=== PATIENT | female | born 1990 | race African-American/Black ===

== ENCOUNTER 2018-08-18 22:44 | Emergency (ER) | payer OTHER ==
--- NOTE | 2018-08-18 22:55 | ED Physician Documentation ---
PD HPI NVD - Stated complaint Stated Complaint: NAUSEA/DIARRHEA - Chief complaint Chief Complaint: Abd Pain - History obtained from History obtained from: Patient - History of Present Illness Timing - onset: Today Timing - duration: Hours Timing - details: Gradual onset, Waxing and waning Pain level now: 3 Associated symptoms: Abdominal pain. No: Fever Contributing factors: Diabetes Improved by: Other (nothing) Worsened by: Other (no exacerbating factors) Similar symptoms before: Has not had sx before Recently seen: Not recently seen - Additonal information Additional information: c/o abdominal cramping pain diffusely, diarrhea, and nausea without vomiting. symptoms started this morning and gradually progressed. 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 She says her blood sugars have been running [id number] 200s (most recently mid 100s, as she made some dietary changes due to the previous higher readings Review of Systems Constitutional: denies: Fever, Chills, Sweats Cardiac: reports: Reviewed and negative Respiratory: reports: Reviewed and negative GI: reports: Abdominal Pain, Nausea, Diarrhea. denies: Abdominal Swelling, Vomiting, Bloody / black stool : reports: Frequency. 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 - Present Medications Home Medications: Ambulatory Orders Medication Instructions Recorded Confirmed Diphenoxylate/Atropine [Lomotil] 1 each PO QID PRN #14 tablet 08/19/18 Gabapentin 300 mg PO DAILY 08/19/18 08/19/18 Insulin Aspart [NovoLOG] SUBQ DAILY 08/19/18 Insulin Glargine [Lantus Solostar] 22 units SUBQ DAILY 08/19/18 08/19/18 Ondansetron Odt [Zofran] 4 mg TL Q6H PRN #10 tablet 08/19/18 - Allergies Allergies/Adverse Reactions: Allergies Allergy/AdvReac Type Severity Reaction Status Date / Time No Known Drug Allergies Allergy Verified 08/18/18 22:53 PD ED PE NORMAL - Vitals Vital signs reviewed: Yes - General General: Alert and oriented X 3, No acute distress, Well developed/nourished - HEENT HEENT: Moist mucous membranes - Cardiac Cardiac: No murmur - Respiratory Respiratory: No respiratory distress, Clear bilaterally - Abdomen Abdomen: Normal bowel sounds, Soft, Non tender, Non distended - Back Back: No CVA TTP PD ED PE EXPANDED - Cardiac Cardiac: Tachy, Regular Rhythm Results - Vitals Vitals: Vital Signs - 24 hr 08/18/18 08/18/18 08/19/18 22:45 22:50 00:19 Temperature 36.4 C L Heart Rate 104 H 104 H 79 Respiratory 18 18 14 Rate Blood Pressure 132/96 H 132/96 H 125/78 O2 Saturation 100 100 100 08/19/18 00:43 Temperature 36.2 C L Heart Rate 80 Respiratory 16 Rate Blood Pressure 115/86 H O2 Saturation 100 Oxygen O2 Source Room air - Labs Labs: Laboratory Tests 08/18/18 08/18/18 08/18/18 22:49 23:25 23:25 WBC 7.2 RBC 4.90 Hgb 10.1 L Hct 37.0 MCV 75.5 L MCH 20.6 L MCHC 27.3 L RDW 15.6 H Plt Count 295 MPV 9.7 Neut # (Auto) 3.7 Lymph # (Auto) 2.8 [place] # (Auto) 0.6 Eos # (Auto) 0.0 Baso # (Auto) 0.0 Absolute Nucleated RBC 0.00 Nucleated RBC % 0.0 Manual Slide Review Indicated Platelet Estimate NORMAL (130-450,000) RBC Morph Micro Appear 1+ MICROCYTOSIS Sodium 139 Potassium 3.8 Chloride 102 Carbon Dioxide 24 Anion Gap 13.0 BUN 10 Creatinine 0.6 Estimated GFR (MDRD) 148 Glucose 253 H POC Whole Bld Glucose 232 H Calcium 9.5 Total Bilirubin 0.4 AST 19 ALT 10 Alkaline Phosphatase 77 Total Protein 7.8 Albumin 4.0 Globulin 3.8 Albumin/Globulin Ratio 1.1 Lipase 33 Urine Color Urine Clarity Urine pH Ur Specific Roy Urine Protein Urine Glucose (UA) Urine Ketones Urine Occult Blood Urine Nitrite Urine Bilirubin Urine Urobilinogen Ur Leukocyte Esterase Ur Microscopic Review Urine Culture Comments 08/18/18 23:54 WBC RBC Hgb Hct MCV MCH MCHC RDW Plt Count MPV Neut # (Auto) Lymph # (Auto) [place] # (Auto) Eos # (Auto) Baso # (Auto) Absolute Nucleated RBC Nucleated RBC % Manual Slide Review Platelet Estimate RBC Morph Micro Appear Sodium Potassium Chloride Carbon Dioxide Anion Gap BUN Creatinine Estimated GFR (MDRD) Glucose POC Whole Bld Glucose Calcium Total Bilirubin AST ALT Alkaline Phosphatase Total Protein Albumin Globulin Albumin/Globulin Ratio Lipase Urine Color YELLOW Urine Clarity CLEAR Urine pH 6.5 Ur Specific Roy 1.015 Urine Protein NEGATIVE Urine Glucose (UA) >=1000 H Urine Ketones 40 H Urine Occult Blood NEGATIVE Urine Nitrite NEGATIVE Urine Bilirubin NEGATIVE Urine Urobilinogen 0.2 (NORMAL) Ur Leukocyte Esterase NEGATIVE Ur Microscopic Review NOT INDICATED Urine Culture Comments NOT INDICATED PD MEDICAL DECISION MAKING - ED course Complexity details: reviewed results, re-evaluated patient, considered differential, d/w patient, d/w family ED course: reassuring blood tests and UA. on reevaluation, patient reports feeling better after IV fluids, zofran, and lomotil, and she is comfortable with discharge home Departure - Departure Disposition: 01 , Self Care Clinical Impression: Nausea Diarrhea Qualifiers: Diarrhea type: unspecified type Qualified Code(s): R19.7 - Diarrhea, unspecified Abdominal pain Qualifiers: Abdominal location: generalized Qualified Code(s): R10.84 - Generalized abdominal pain Condition: Good Health Concerns: abnormal blood sugar, diarrhea, nausea, abdominal pain Plan of Treatment: prescriptions for antinauseant and antidiarrheal medications, return if worse, follow up with primary care physician Care Goals: resolution of symptoms Assessment: see diagnosis Instructions: ED Abdominal Pain Unkn Cause, ED Diet Vomiting Diarrhea, ED Vomiting Diarrhea Nonspecific Ad Follow-Up: Remy Maravilla ARNP [Primary Care Provider] - Prescriptions: Diphenoxylate/Atropine [Lomotil] 1 each PO QID PRN #14 tablet PRN Reason: Diarrhea Ondansetron Odt [Zofran] 4 mg TL Q6H PRN #10 tablet PRN Reason: Nausea / Vomiting Discharge Date/Time: 08/19/18 00:45
[2018-08-18] MEDS ORDERED: SODIUM CHLORIDE 0.9% 1,000 ML IV STA (23:07)
[2018-08-18] MEDS ORDERED: ONDANSETRON 4 MG/2 ML VIAL IVP STA (23:07)
[2018-08-18] MEDS ORDERED: DIPHENOX/ATROPINE 2.5/0.025 MG TABLET PO STA (23:08)
[2018-08-18 23:36] LABS: BASOPHILS % (AUTO) 0.4 %; EOSINOPHILS % (AUTO) 0.6 %; HGB - HEMOGLOBIN 10.1 g/dL (12.0-16.0); LYMPHOCYTES # (AUTO) 2.8 10^3/uL (1.5-3.5); LYMPHOCYTES % (AUTO) 38.8 %; MEAN CORPUSCULAR HEMOGLOBIN 20.6 pg (27.0-31.0); MEAN CORPUSCULAR HGB CONC 27.3 g/dL (32.0-36.0); MEAN CORPUSCULAR VOLUME 75.5 fL (81.0-99.0); MEAN PLATELET VOLUME 9.7 fL (7.9-10.8); MONOCYTES # (AUTO) 0.6 10^3/uL (0.0-1.0); MONOCYTES % (AUTO) 8.1 %; NEUTROPHILS # (AUTO) 3.7 10^3/uL (1.5-6.6); NEUTROPHILS % (AUTO) 51.8 %; PLT - PLATELET COUNT 295 10^3/uL (130-450); RED CELL DISTRIBUTION WIDTH 15.6 % (12.0-15.0); WHITE BLOOD COUNT 7.2 x10^3/uL (4.8-10.8)
[2018-08-18 23:50] LABS: ALBUMIN/GLOBULIN RATIO 1.1 (1.0-2.2); BILIRUBIN,TOTAL 0.4 mg/dL (0.2-1.0); CALCIUM 9.5 mg/dL (8.5-10.3); CREATININE 0.6 mg/dL (0.4-1.0); TOTAL PROTEIN 7.8 g/dL (6.7-8.2)
[2018-08-18 23:57] LABS: BILIRUBIN,URINE NEGATIVE (NEGATIVE); GLUCOSE, URINE (UA) >=1000 mg/dL (NEGATIVE); KETONES,URINE (UA) 40 mg/dL (NEGATIVE); LEUKOCYTE ESTERASE, URINE NEGATIVE (NEGATIVE); NITRITE,URINE NEGATIVE (NEGATIVE); OCCULT BLOOD,URINE NEGATIVE (NEGATIVE); PH,URINE 6.5 PH (5.0-7.5); PROTEIN,URINE NEGATIVE (NEGATIVE); UROBILINOGEN,URINE 0.2 (NORMAL) E.U./dL (NORMAL)
[2018-08-18 23:58] LABS: CLARITY,URINE CLEAR (CLEAR)
[2018-08-19 00:06] LABS: PLATELET ESTIMATE, MANUAL NORMAL (130-450,000) (NORMAL); RBC MORPHOLOGY (MULTIPLE) 1+ MICROCYTOSIS (NORMAL)
[2018-08-19 00:44] VITALS: BP 115/86
== END 2018-08-19 00:45 | disposition home or self-care (01) ==
LOC: ED 22:44
DX: R10.84 Generalized abdominal pain (principal); R19.7 Diarrhea, unspecified; R11.0 Nausea; E10.9 Type 1 diabetes mellitus without complications; Z79.4 Long term (current) use of insulin
CPT/HCPCS: 36415; 80053; 81003; 83690; 85025; 96361; 96374; 99283; 99284; A9270; 81001; 87086

== ENCOUNTER 2018-09-20 15:37 | Emergency (ER) | payer OTHER ==
--- NOTE | 2018-09-20 15:51 | ED Physician Documentation ---
History of Present Illness - Stated complaint Stated Complaint: DIZZY - Chief complaint Chief Complaint: General - History obtained from History obtained from: Patient - History of Present Illness Timing: Today (27-year-old woman Who has had type 1 diabetes for the last 4 years. She was in her usual state of health this morning and about an hour ago started to feel lightheaded and panicky and palpitations. Starting to feel better now. She admits this may have been anxiety. She took her blood sugar twice and it was in the neighborhood of 190.) Review of Systems Ten Systems: 10 systems reviewed and negative Constitutional: denies: Fever, Chills Cardiac: reports: Palpitations. 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 - Present Medications Home Medications: Ambulatory Orders Medication Instructions Recorded Confirmed Diphenoxylate/Atropine [Lomotil] 1 each PO QID PRN #14 tablet 08/19/18 Insulin Aspart [NovoLOG] SUBQ DAILY 08/19/18 Insulin Glargine [Lantus Solostar] 22 units SUBQ DAILY 08/19/18 08/19/18 Ondansetron Odt [Zofran] 4 mg TL Q6H PRN #10 tablet 08/19/18 RX: Gabapentin 300 mg PO DAILY 08/19/18 08/19/18 RX: Gabapentin [Neurontin] 300 mg PO TID #30 capsule 09/20/18 - Allergies Allergies/Adverse Reactions: Allergies Allergy/AdvReac Type Severity Reaction Status Date / Time No Known Drug Allergies Allergy Verified 09/20/18 15:43 - Social History Does the pt smoke?: No Smoking Status: Never smoker Does the pt drink ETOH?: No Does the pt have substance abuse?: No - Immunizations Immunizations are current?: Yes - POLST Patient has POLST: No PD ED PE NORMAL - Vitals Vital signs reviewed: Yes - General General: Alert and oriented X 3, No acute distress - HEENT HEENT: Pharynx benign - Neck Neck: Supple, no meningeal sign, No bony TTP - Cardiac Cardiac: RRR, No murmur - Respiratory Respiratory: No respiratory distress, Clear bilaterally - Abdomen Abdomen: Non tender - Derm Derm: No rash - Extremities Extremities: No edema, No calf tenderness / cord - Neuro Neuro: Alert and oriented X 3, hvac designer 2-12 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, Normal speech Eye Opening: Spontaneous Motor: Obeys Commands Verbal: Oriented GCS Score: 15 Results - Vitals Vitals: Vital Signs - 24 hr 09/20/18 09/20/18 15:41 17:01 Temperature 36.7 C Heart Rate 92 82 Respiratory 18 16 Rate Blood Pressure 133/86 H 116/81 H O2 Saturation 100 100 Oxygen O2 Source Room air - Labs Labs: Laboratory Tests 09/20/18 09/20/18 09/20/18 15:54 15:56 15:56 WBC 5.0 RBC 4.52 Hgb 9.5 L Hct 34.1 L MCV 75.4 L MCH 21.0 L MCHC 27.9 L RDW 15.5 H Plt Count 229 MPV 8.9 Neut # (Auto) 2.4 Lymph # (Auto) 2.1 [place] # (Auto) 0.4 Eos # (Auto) 0.0 Baso # (Auto) 0.0 Absolute Nucleated RBC 0.00 Nucleated RBC % 0.0 Sodium 134 L Potassium 3.1 L Chloride 99 L Carbon Dioxide 22 Anion Gap 13.0 BUN 13 Creatinine 0.6 Estimated GFR (MDRD) 148 Glucose 264 H Calcium 9.6 Total Bilirubin 0.3 AST 21 ALT 13 Alkaline Phosphatase 80 Total Protein 7.7 Albumin 3.8 Globulin 3.9 Albumin/Globulin Ratio 1.0 Lipase 27 Urine Color YELLOW Urine Clarity CLEAR Urine pH 6.0 Ur Specific [place] 1.020 Urine Protein NEGATIVE Urine Glucose (UA) 500 H Urine Ketones TRACE Urine Occult Blood LARGE H Urine Nitrite NEGATIVE Urine Bilirubin NEGATIVE Urine Urobilinogen 1 (NORMAL) Ur Leukocyte Esterase NEGATIVE Urine RBC TNTC H Urine WBC 4-5 Ur Squamous Epith Cells FEW Squamous Urine Bacteria Many H Urine Mucus Few Strands Urine Yeast PRESENT Ur Microscopic Review INDICATED Urine Culture Comments INDICATED Urine 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 She has a history of type 1 diabetes. No evidence of DKA. On further history she was on gabapentin but stopped abruptly recently and I suspect that this may be contributing and she is advised to start up on gabapentin again at a lower dose which should help with her anxiety symptoms. She does have apparent iron deficiency anemia and is taking iron already for this. Urinalysis noted, but has no symptoms really referrable to this and would wait for culture. Departure - Departure Disposition: 01 Home, Self Care Clinical Impression: Anxiety, Diabetes, Iron deficiency anemia Condition: Good Record reviewed to determine appropriate education?: Yes Instructions: ED Stress React Prescriptions: RX: Gabapentin [Neurontin] 300 mg PO TID #30 capsule Comments: Blood pressure Restart her gabapentin at a lower dose. That should help with your anxiety symptoms. Continue your iron for iron deficiency anemia. Return for new or worsening symptoms. Discharge Date/Time: 09/20/18 17:02
[2018-09-20 16:01] LABS: BASOPHILS % (AUTO) 0.6 %; EOSINOPHILS % (AUTO) 0.4 %; HGB - HEMOGLOBIN 9.5 g/dL (12.0-16.0); LYMPHOCYTES # (AUTO) 2.1 10^3/uL (1.5-3.5); LYMPHOCYTES % (AUTO) 42.8 %; MEAN CORPUSCULAR HGB CONC 27.9 g/dL (32.0-36.0); MEAN CORPUSCULAR VOLUME 75.4 fL (81.0-99.0); MEAN PLATELET VOLUME 8.9 fL (7.9-10.8); MONOCYTES # (AUTO) 0.4 10^3/uL (0.0-1.0); MONOCYTES % (AUTO) 7.9 %; NEUTROPHILS # (AUTO) 2.4 10^3/uL (1.5-6.6); NEUTROPHILS % (AUTO) 48.1 %; PLT - PLATELET COUNT 229 10^3/uL (130-450); RED BLOOD COUNT 4.52 10^6/uL (4.20-5.40); RED CELL DISTRIBUTION WIDTH 15.5 % (12.0-15.0)
[2018-09-20 16:14] LABS: BILIRUBIN,URINE NEGATIVE (NEGATIVE); GLUCOSE, URINE (UA) 500 mg/dL (NEGATIVE); KETONES,URINE (UA) TRACE mg/dL (NEGATIVE); LEUKOCYTE ESTERASE, URINE NEGATIVE (NEGATIVE); NITRITE,URINE NEGATIVE (NEGATIVE); OCCULT BLOOD,URINE LARGE (NEGATIVE); PROTEIN,URINE NEGATIVE (NEGATIVE); UROBILINOGEN,URINE 1 (NORMAL) E.U./dL (NORMAL)
[2018-09-20 16:15] LABS: CLARITY,URINE CLEAR (CLEAR)
[2018-09-20 16:26] LABS: ALBUMIN 3.8 g/dL (3.2-5.5); BILIRUBIN,TOTAL 0.3 mg/dL (0.2-1.0); CALCIUM 9.6 mg/dL (8.5-10.3); CREATININE 0.6 mg/dL (0.4-1.0); TOTAL PROTEIN 7.7 g/dL (6.7-8.2)
[2018-09-20 16:35] LABS: BACTERIA,URINE Many /HPF (None Seen); MUCUS,URINE Few Strands; RBC,URINE TNTC /HPF (0-5); SQUAMOUS EPITHELIAL CELL,UR FEW Squamous (<= Few)
[2018-09-20 16:36] LABS: YEAST,URINE PRESENT
[2018-09-20 17:02] VITALS: BP 116/81
== END 2018-09-20 17:02 | disposition home or self-care (01) ==
LOC: ED 15:37
DX: F41.9 Anxiety disorder, unspecified (principal); E10.9 Type 1 diabetes mellitus without complications; Z79.4 Long term (current) use of insulin; D50.9 Iron deficiency anemia, unspecified
CPT/HCPCS: 36415; 80053; 81001; 81003; 81025; 83690; 85025; 87086; 99283

== ENCOUNTER 2018-10-30 21:59 | Emergency (ER) | payer MEDICARE, OTHER ==
--- NOTE | 2018-10-30 22:12 | ED Physician Documentation ---
History of Present Illness - Stated complaint Stated Complaint: BREAST PX/NAUSEA - Chief complaint Chief Complaint: Ext Problem - History obtained from History obtained from: Patient - History of Present Illness Timing: How many weeks ago (1) Improved by: nothing Worsened by: no exacerbating factors - Additonal information Additional information: c/o one week of gradual onset, gradually worsening left chest / left breast pain. Denies h/o similar symptoms Review of Systems Constitutional: denies: Fever, Chills, Sweats Cardiac: reports: Chest pain / pressure. 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 - Present Medications Home Medications: Ambulatory Orders Medication Instructions Recorded Confirmed Gabapentin 300 mg PO DAILY 08/19/18 08/19/18 Insulin Aspart [NovoLOG] SUBQ DAILY 08/19/18 Insulin Glargine [Lantus Solostar] 22 units SUBQ DAILY 08/19/18 08/19/18 Gabapentin [Neurontin] 300 mg PO TID #30 capsule 09/20/18 Ondansetron Odt [Zofran] 4 mg TL Q6H PRN #10 tablet 10/30/18 Oxycodone HCl/Acetaminophen 1 - 2 each PO Q6H PRN #14 tablet 10/30/18 [Percocet 5-325 mg Tablet] - Allergies Allergies/Adverse Reactions: Allergies Allergy/AdvReac Type Severity Reaction Status Date / Time No Known Drug Allergies Allergy Verified 09/20/18 15:43 - Social History Does the pt smoke?: No Smoking Status: Never smoker Does the pt drink ETOH?: No Does the pt have substance abuse?: No - Immunizations Immunizations are current?: Yes - POLST Patient has POLST: No PD ED PE NORMAL - Vitals Vital signs reviewed: Yes - General General: Alert and oriented X 3, No acute distress, Well developed/nourished - Cardiac Cardiac: RRR, No murmur - Respiratory Respiratory: No respiratory distress, Clear bilaterally - Abdomen Abdomen: Soft, Non tender - Female Female : Test Baker present (BISHNU Tee), Other (left breast exam: no erythema, no tenderness, no visible or palpable general or focal swelling, no rash) - Derm Derm: Normal color, Warm and dry, No rash Results - Vitals Vitals: Vital Signs - 24 hr 10/30/18 10/30/18 22:02 23:42 Temperature 36.9 C 37.1 C Heart Rate 97 87 Respiratory 17 18 Rate Blood Pressure 130/85 H 130/75 O2 Saturation 100 100 Oxygen O2 Source Room air - EKG (time done) No standard instances Rate: Rate (enter#) (86) Rhythm: NSR [place]: Normal Intervals: Normal [place] QRS: Normal Ischemia: Normal ST segments - Labs Labs: Laboratory Tests 10/30/18 10/30/18 10/30/18 22:32 22:32 23:10 WBC 7.5 RBC 4.51 Hgb 9.8 L Hct 33.8 L MCV 74.9 L MCH 21.7 L MCHC 29.0 L RDW 16.4 H Plt Count 343 MPV 9.7 Neut # (Auto) 3.5 Lymph # (Auto) 3.4 [place] # (Auto) 0.5 Eos # (Auto) 0.1 Baso # (Auto) 0.0 Absolute Nucleated RBC 0.00 Nucleated RBC % 0.0 Sodium 133 L Potassium 3.4 L Chloride 100 L Carbon Dioxide 23 Anion Gap 10.0 BUN 12 Creatinine 0.6 Estimated GFR (MDRD) 146 Glucose 292 H Calcium 8.9 Ur Specific [place] 1.010 Urine HCG, Qual NEGATIVE PD MEDICAL DECISION MAKING - ED course Complexity details: reviewed results, re-evaluated patient, considered differential, d/w patient Departure - Departure Disposition: 01 Home, Self Care Clinical Impression: Chest pain Qualifiers: Chest pain type: unspecified Qualified Code(s): R07.9 - Chest pain, unspecified Condition: Good Instructions: ED Chest Pain Atypical Unkn Cause Follow-Up: CY Rogers [Provider Group] - Within 3 Days Prescriptions: Ondansetron Odt [Zofran] 4 mg TL Q6H PRN #10 tablet PRN Reason: Nausea / Vomiting Oxycodone HCl/Acetaminophen [Percocet 5-325 mg Tablet] 1 - 2 each PO Q6H PRN #14 tablet PRN Reason: pain Discharge Date/Time: 10/30/18 23:52
[2018-10-30 22:36] LABS: BASOPHILS % (AUTO) 0.4 %; EOSINOPHILS # (AUTO) 0.1 10^3/uL (0.0-0.7); EOSINOPHILS % (AUTO) 0.7 %; HGB - HEMOGLOBIN 9.8 g/dL (12.0-16.0); LYMPHOCYTES # (AUTO) 3.4 10^3/uL (1.5-3.5); LYMPHOCYTES % (AUTO) 45.2 %; MEAN CORPUSCULAR HEMOGLOBIN 21.7 pg (27.0-31.0); MEAN CORPUSCULAR VOLUME 74.9 fL (81.0-99.0); MEAN PLATELET VOLUME 9.7 fL (7.9-10.8); MONOCYTES # (AUTO) 0.5 10^3/uL (0.0-1.0); MONOCYTES % (AUTO) 6.6 %; NEUTROPHILS # (AUTO) 3.5 10^3/uL (1.5-6.6); PLT - PLATELET COUNT 343 10^3/uL (130-450); RED BLOOD COUNT 4.51 10^6/uL (4.20-5.40); RED CELL DISTRIBUTION WIDTH 16.4 % (12.0-15.0); WHITE BLOOD COUNT 7.5 x10^3/uL (4.8-10.8)
[2018-10-30 22:45] LABS: CALCIUM 8.9 mg/dL (8.5-10.3); CREATININE 0.6 mg/dL (0.4-1.0)
[2018-10-30 23:26] LABS: HCG UR QUAL NEGATIVE
[2018-10-30] MEDS ORDERED: oxyCODONE/ACET 5/325 Prepack 4 PO STA (23:33)
[2018-10-30] MEDS ORDERED: ONDANSETRON ODT 4 MG Prepack 2 TL STA (23:34)
[2018-10-30 23:43] VITALS: BP 130/75
== END 2018-10-30 23:52 | disposition home or self-care (01) ==
LOC: ED 21:59
DX: R07.9 Chest pain, unspecified (principal); N64.4 Mastodynia; E10.9 Type 1 diabetes mellitus without complications
CPT/HCPCS: 36415; 80048; 81025; 85025; 93005; 99283

== ENCOUNTER 2019-02-12 10:45 | Emergency (ER) | payer MEDICARE, OTHER ==
[2019-02-12 10:53] VITALS: BP 117/71
[2019-02-12 11:45] LABS: BASOPHILS % (AUTO) 0.3 %; EOSINOPHILS # (AUTO) 0.1 10^3/uL (0.0-0.7); EOSINOPHILS % (AUTO) 1.1 %; HGB - HEMOGLOBIN 12.6 g/dL (12.0-16.0); LYMPHOCYTES # (AUTO) 2.3 10^3/uL (1.5-3.5); LYMPHOCYTES % (AUTO) 36.9 %; MEAN CORPUSCULAR HEMOGLOBIN 27.4 pg (27.0-31.0); MEAN CORPUSCULAR HGB CONC 32.6 g/dL (32.0-36.0); MEAN CORPUSCULAR VOLUME 83.9 fL (81.0-99.0); MEAN PLATELET VOLUME 9.8 fL (7.9-10.8); MONOCYTES # (AUTO) 0.4 10^3/uL (0.0-1.0); MONOCYTES % (AUTO) 6.4 %; NEUTROPHILS # (AUTO) 3.4 10^3/uL (1.5-6.6); PLT - PLATELET COUNT 322 10^3/uL (130-450); RED CELL DISTRIBUTION WIDTH 13.6 % (12.0-15.0); WHITE BLOOD COUNT 6.2 x10^3/uL (4.8-10.8)
[2019-02-12 12:14] LABS: ALBUMIN 3.8 g/dL (3.2-5.5); ALBUMIN/GLOBULIN RATIO 1.1 (1.0-2.2); BILIRUBIN,TOTAL 0.4 mg/dL (0.2-1.0); CALCIUM 9.1 mg/dL (8.5-10.3); CREATININE 0.7 mg/dL (0.4-1.0); TOTAL PROTEIN 7.3 g/dL (6.7-8.2)
[2019-02-12 12:40] LABS: HCG,QUALITATIVE BLOOD POSITIVE
== END 2019-02-12 12:30 | disposition left against medical advice (07) ==
LOC: ED 10:45
DX: Z53.21 Procedure and treatment not carried out due to patient leaving prior to being seen by health care provider (principal)
CPT/HCPCS: 36415; 80053; 83690; 84703; 85025

== ENCOUNTER 2019-03-15 10:41 | Emergency (ER) | payer MEDICARE, OTHER ==
[2019-03-15 10:49] VITALS: BP 121/74
--- NOTE | 2019-03-15 12:45 | ED Physician Documentation ---
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 - Present Medications Home Medications: Ambulatory Orders Medication Instructions Recorded Confirmed Gabapentin 300 mg PO DAILY 08/19/18 08/19/18 Insulin Aspart [NovoLOG] SUBQ DAILY 08/19/18 Insulin Glargine [Lantus Solostar] 22 units SUBQ DAILY 08/19/18 08/19/18 Gabapentin [Neurontin] 300 mg PO TID #30 capsule 09/20/18 Ondansetron Odt [Zofran] 4 mg TL Q6H PRN #10 tablet 10/30/18 Oxycodone HCl/Acetaminophen 1 - 2 each PO Q6H PRN #14 tablet 10/30/18 [Percocet 5-325 mg Tablet] - Allergies Allergies/Adverse Reactions: Allergies Allergy/AdvReac Type Severity Reaction Status Date / Time No Known Drug Allergies Allergy Verified 03/15/19 10:46 - Social History Does the pt smoke?: No Smoking Status: Never smoker Does the pt drink ETOH?: No Does the pt have substance abuse?: No - Immunizations Immunizations are current?: Yes - POLST Patient has POLST: No Results - Vitals Vitals: Vital Signs - 24 hr 03/15/19 10:46 Temperature 36.5 C Heart Rate 100 Respiratory 14 Rate Blood Pressure 121/74 O2 Saturation 100 Oxygen O2 Source Room air
== END 2019-03-15 12:56 | disposition left against medical advice (07) ==
LOC: ED 10:41
DX: Z53.21 Procedure and treatment not carried out due to patient leaving prior to being seen by health care provider (principal)
CPT/HCPCS: 80053; 83690; 85025

== ENCOUNTER 2019-06-03 18:15 | Emergency (ER) | payer MEDICARE, OTHER ==
[2019-06-03 18:27] VITALS: BP 127/76
[2019-06-03] MEDS ORDERED: ALBUTEROL 1 PUFF INH STA (18:44)
--- NOTE | 2019-06-03 18:50 | ED Physician Documentation ---
History of Present Illness - Stated complaint Stated Complaint: SOA- - Chief complaint Chief Complaint: Resp - History obtained from History obtained from: Patient - History of Present Illness Timing: How many weeks ago (1) Pain level max: 0 Pain level now: 0 - Additonal information Additional information: 28-year-old female states that she is approximately 24 weeks . She states that she has been intermittently short of breath for the past week. States that today it worsened and was short of breath for approximately 30 minutes. She states it felt like she had a panic attack at that time which made it worse. No fever. No coughing. Did recently travel to [place]. No significant leg swelling. She states that laying on her left side did not seem to help, but being on all fours on the ground seem to help. No issues with this . Does not have a history of asthma. Nothing makes it worse Review of Systems Ten Systems: 10 systems reviewed and negative Constitutional: denies: Fever, Chills Ears: denies: Ear pain Nose: denies: Rhinorrhea / runny nose, Congestion Throat: denies: Sore throat Cardiac: denies: Chest pain / pressure Respiratory: reports: Dyspnea (Intermittently, lasts for 15 to 20 minutes at a time). 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 - Present Medications Home Medications: Ambulatory Orders Medication Instructions Recorded Confirmed Gabapentin 300 mg PO DAILY 08/19/18 08/19/18 Insulin Aspart [NovoLOG] SUBQ DAILY 08/19/18 Insulin Glargine [Lantus Solostar] 22 units SUBQ DAILY 08/19/18 08/19/18 Gabapentin [Neurontin] 300 mg PO TID #30 capsule 09/20/18 Ondansetron Odt [Zofran] 4 mg TL Q6H PRN #10 tablet 10/30/18 Oxycodone HCl/Acetaminophen 1 - 2 each PO Q6H PRN #14 tablet 10/30/18 [Percocet 5-325 mg Tablet] Albuterol Sulf [Ventolin Hfa 1 - 2 puffs INH Q4HR PRN #1 inhaler 06/03/19 Inhaler] - Allergies Allergies/Adverse Reactions: Allergies Allergy/AdvReac Type Severity Reaction Status Date / Time No Known Drug Allergies Allergy Verified 03/15/19 10:46 - Social History Does the pt smoke?: No Smoking Status: Never smoker Does the pt drink ETOH?: No Does the pt have substance abuse?: No - Immunizations Immunizations are current?: Yes - POLST Patient has POLST: No PD ED PE NORMAL - Vitals Vital signs reviewed: Yes - General General: Alert and oriented X 3, No acute distress, Well developed/nourished - HEENT HEENT: PERRL, Moist mucous membranes - Neck Neck: Supple, no meningeal sign - Cardiac Cardiac: RRR, Strong equal pulses - Respiratory Respiratory: No respiratory distress, Clear bilaterally - Abdomen Abdomen: Soft, Non tender, Non distended, Other (Gravid abdomen.) - Derm Derm: Warm and dry, No rash - Extremities Extremities: No edema, No calf tenderness / cord - Neuro Neuro: Alert and oriented X 3 - Psych Psych: Normal mood, Normal affect Results - Vitals Vitals: Vital Signs - 24 hr 06/03/19 06/03/19 06/03/19 18:24 19:17 19:21 Temperature 36.8 C Heart Rate 122 H 116 H 111 H Respiratory 16 18 18 Rate Blood Pressure 127/76 O2 Saturation 99 98 Oxygen O2 Source Room air PD MEDICAL DECISION MAKING - ED course Complexity details: considered differential, d/w patient ED course: Symptoms resolved with albuterol treatment. She is well-appearing, nontoxic. Afebrile. Will prescribe inhaler for home. No evidence of pulmonary embolus. No evidence of acute coronary syndrome. Lungs are clear to auscultation bilaterally. heart tones are normal. She is having normal movement. No leakage of fluid or vaginal bleeding. Patient counseled regarding signs and symptoms for which I believe and urgent re-evaluation would be necessary. Patient with good understanding of and agreement to plan and is comfortable going home at this time This document was made in part using voice recognition software. While efforts are made to proofread this document, sound alike and grammatical errors may occur. Departure - Departure Disposition: 01 Home, Self Care Clinical Impression: Dyspnea Qualifiers: Dyspnea type: unspecified Qualified Code(s): R06.00 - Dyspnea, unspecified Qualifiers: Weeks of gestation: 24 weeks Qualified Code(s): Z3A.24 - 24 weeks gestation of Condition: Good Instructions: ED Dyspnea Shortness of Breath Follow-Up: LU WEEKS MD [Primary Care Provider] - Prescriptions: Albuterol Sulf [Ventolin Hfa Inhaler] 1 - 2 puffs INH Q4HR PRN #1 inhaler PRN Reason: Shortness Of Air/Wheezing Comments: You can use the inhaler as needed. Return if you worsen. Discharge Date/Time: 06/03/19 19:35
[2019-06-03] MEDS ORDERED: ALBUTEROL NEB 2.5 MG/3 ML INH STA (19:12)
== END 2019-06-03 19:35 | disposition home or self-care (01) ==
LOC: ED 18:15
DX: O99.89 Other specified diseases and conditions complicating pregnancy, childbirth and the puerperium (principal); R06.00 Dyspnea, unspecified; O24.912 Unspecified diabetes mellitus in pregnancy, second trimester; Z3A.24 24 weeks gestation of pregnancy
CPT/HCPCS: 94640; 99284

== ENCOUNTER 2019-06-15 14:59 | Outpatient (CLI) | payer MEDICARE, OTHER ==
--- NOTE | 2019-06-15 16:11 | HISTORY & PHYSICAL EXAMINATION ---
Admit History - Visit Reason Visit Reason: Other (28yo at 27 3/7 weeks by stated LMP who presents with progressive dyspnea over the course of the day. +/- cough, has not checked her temp. No n/v or dysuria. Was seen in ER on 06/02 for same, given albuterol with some improvement 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) Smoking Status: Never smoker - Mother's Labs Mother's Blood Type: positive: Unknown Mother's RH: positive: Unknown (Records unavailable) GBS: positive: Other (Unknown) Rubella Status: positive: Unknown Meds/Allgy - Home Medications Home Medications: Ambulatory Orders Medication Instructions Recorded Confirmed Gabapentin 300 mg PO DAILY 08/19/18 08/19/18 Insulin Aspart [NovoLOG] SUBQ DAILY 08/19/18 Insulin Glargine [Lantus Solostar] 22 units SUBQ DAILY 08/19/18 08/19/18 Gabapentin [Neurontin] 300 mg PO TID #30 capsule 09/20/18 Ondansetron Odt [Zofran] 4 mg TL Q6H PRN #10 tablet 10/30/18 Oxycodone HCl/Acetaminophen 1 - 2 each PO Q6H PRN #14 tablet 10/30/18 [Percocet 5-325 mg Tablet] Albuterol Sulf [Ventolin Hfa 1 - 2 puffs INH Q4HR PRN #1 inhaler 06/03/19 Inhaler] - Allergies Allergies/Adverse Reactions: Allergies Allergy/AdvReac Type Severity Reaction Status Date / Time No Known Drug Allergies Allergy Verified 03/15/19 10:46 Review of Systems - Constitutional Constitutional: reports: Malaise, Weakness - Cardiovascular Cariovascular: reports: Palpitations, Chest pain - Respiratory Respiratory: reports: Cough, Wheezing, SOB at rest - Gastrointestinal Gastrointestinal: reports: Other (Few mild contractions) Physical - Abdominal Exam Contraction Frequency (min/apart): q2-5 Contraction Intensity: positive: Mild Uterine Resting Tone: positive: Soft - Monitoring Strip Review: positive: Category I - Vaginal Exam Membranes: positive: Membranes intact - Speculum Exam Speculum Exam Performed: positive: No (FFN collected) Plan for Labor - Plan For Labor Plan for Labor: 28yo at 27 3/7 weeks with significant respiratory distress and features ie tachycardia, abn pulmonary exam suspicious for COVID infection. Type 1 DM w h/o poor control Contractions; FFN sent Plan transfer to ER for further respiratory care. Labs to assess glucose status Follow for signs of PTL. Exam - Exam General: Alert, Moderate distress Lungs: Other (Bilateral basilar wheezes, otherwise clear) Cardiovascular: Regular rate, Other (Marked tachycardia with harsh systolic murmur 3/6) Abdomen: Soft, No tenderness, Other (Gravid, S=D) Skin: No rashes
--- NOTE | 2019-06-15 16:31 | PROVIDER PROGRESS NOTE ---
Subjective - Prog Note Date Prog Note Date: 06/15/19 - Subjective Subjective: Pt brought to ER with O2. RR 25-30, sat 98-100 RA however, with movement 89-91% Recommend stabilize from respiratory standpoint and transfer to [facility].
[2019-06-15 17:31] VITALS: BP 132/88
== END 2019-06-15 16:08 | disposition home or self-care (01) ==
LOC: WFO 14:59 → FBP 15:02 → WFO 16:08
PROVIDERS: ATTEND Obstetrics & Gynecology
DX: O99.89 Other specified diseases and conditions complicating pregnancy, childbirth and the puerperium (principal); R06.03 Acute respiratory distress; R00.0 Tachycardia, unspecified; R05 Cough; O24.012 Pre-existing type 1 diabetes mellitus, in pregnancy, second trimester; E10.40 Type 1 diabetes mellitus with diabetic neuropathy, unspecified; Z3A.27 27 weeks gestation of pregnancy; Z79.4 Long term (current) use of insulin
CPT/HCPCS: 82731; 99214

== ENCOUNTER 2019-06-15 16:15 | Emergency (ER) | payer MEDICARE, OTHER ==
--- NOTE | 2019-06-15 16:33 | ED Physician Documentation ---
PD HPI CHEST PAIN - Stated complaint Stated Complaint: SOA - Chief complaint Chief Complaint: Resp - History obtained from History obtained from: Patient - History of Present Illness Timing - onset: Today (28-year-old G3, P2 at 26 weeks gestation. She is a type I diabetic. She has been short of breath for a couple of weeks, fairly mild. She improved with albuterol but today became much more short of breath. She is orthopneic. Denies chest pain. Was initially seen in OB because of some abdominal complaints and nonstress testing was notable for every 3 to 5-minute contractions. No fluid loss or bleeding. She denies pedal edema or calf pain. No history of heart or lung disease. She denies any cough. No fevers.) Review of Systems Ten Systems: 10 systems reviewed and negative Constitutional: denies: Fever, Chills Throat: denies: Sore throat Cardiac: denies: Chest pain / pressure, Palpitations, Pedal edema, Calf pain Respiratory: denies: Cough, Hemoptysis, Wheezing PD PAST MEDICAL HISTORY - Past Medical History Cardiovascular: None Respiratory: None Neuro: Headaches, Migraines Endocrine/Autoimmune: Type 1 diabetes GI: None GUEST SERVICES: None : None HEENT: None Psych: None Musculoskeletal: None Derm: None - Past Surgical History Past Surgical History: Yes /GUEST SERVICES: section - Present Medications Home Medications: Ambulatory Orders Medication Instructions Recorded Confirmed Gabapentin 300 mg PO DAILY 08/19/18 08/19/18 Insulin Aspart [NovoLOG] SUBQ DAILY 08/19/18 Insulin Glargine [Lantus Solostar] 22 units SUBQ DAILY 08/19/18 08/19/18 Gabapentin [Neurontin] 300 mg PO TID #30 capsule 09/20/18 Ondansetron Odt [Zofran] 4 mg TL Q6H PRN #10 tablet 10/30/18 Oxycodone HCl/Acetaminophen 1 - 2 each PO Q6H PRN #14 tablet 10/30/18 [Percocet 5-325 mg Tablet] Albuterol Sulf [Ventolin Hfa 1 - 2 puffs INH Q4HR PRN #1 inhaler 06/03/19 Inhaler] - Allergies Allergies/Adverse Reactions: Allergies Allergy/AdvReac Type Severity Reaction Status Date / Time No Known Drug Allergies Allergy Verified 06/15/19 16:19 - Social History Does the pt smoke?: No Smoking Status: Never smoker Does the pt drink ETOH?: No Does the pt have substance abuse?: No - Immunizations Immunizations are current?: Yes - POLST Patient has POLST: No PD ED PE NORMAL - Vitals Vital signs reviewed: Yes - General General: Alert and oriented X 3, Other (She appears acutely ill, tachypneic and tachycardic. Very slightly encephalopathic but alert and oriented) - HEENT HEENT: PERRL, EOMI - Neck Neck: Supple, no meningeal sign, No bony TTP - Cardiac Cardiac: Other (Rapid and regular without murmur) - Respiratory Respiratory: Other (Tachypneic without focal findings) - Abdomen Abdomen: Soft, Other (Gravid) - Derm Derm: Normal color, Warm and dry - Extremities Extremities: No edema, No calf tenderness / cord - Neuro Neuro: Alert and oriented X 3, Normal speech Results - Vitals Vitals: Vital Signs - 24 hr 06/15/19 06/15/19 06/15/19 16:19 16:55 17:16 Temperature 37.2 C Heart Rate 132 H 133 H 125 H Respiratory 24 19 26 H Rate Blood Pressure 127/76 148/101 H 142/91 H O2 Saturation 100 98 98 06/15/19 06/15/19 17:23 17:49 Temperature Heart Rate 126 H 118 H Respiratory 28 H 26 H Rate Blood Pressure 142/91 H 139/77 H O2 Saturation 100 100 Oxygen O2 Source Room air - EKG (time done) 1646 Rate: Rate (enter#) (136) Rhythm: Sinus tachycardia [place]: Normal Intervals: Normal AK Ischemia: Non specific changes Computer interpretation: Agree with computer - Labs Labs: Laboratory Tests 06/15/19 06/15/19 06/15/19 16:31 16:35 16:35 WBC 13.9 H RBC 5.27 Hgb 14.1 Hct 45.8 MCV 86.9 MCH 26.8 L MCHC 30.8 L RDW 12.7 Plt Count 430 MPV 10.1 Neut # (Auto) 10.4 H Lymph # (Auto) 2.2 [place] # (Auto) 1.1 H Eos # (Auto) 0.0 Baso # (Auto) 0.1 Absolute Nucleated RBC 0.02 Nucleated RBC % 0.1 PT INR APTT VBG pH VBG pCO2 VBG pO2 VBG HCO3 VBG Total CO2 VBG O2 Saturation VBG Base Excess Sodium 130 L Potassium 4.5 Chloride 101 Carbon Dioxide 6 L* Anion Gap 23.0 H BUN 16 Creatinine 0.9 Estimated GFR (MDRD) 92 Glucose 363 H POC Whole Bld Glucose 363 H Calcium 9.5 Total Bilirubin 1.3 H AST 16 ALT 12 Alkaline Phosphatase 87 Troponin I High Sens B-Natriuretic Peptide Total Protein 9.7 H Albumin 3.9 Globulin 5.8 H Albumin/Globulin Ratio 0.7 L Lipase 27 Serum Ketones SMALL H 06/15/19 06/15/19 06/15/19 16:35 16:35 16:35 WBC RBC Hgb Hct MCV MCH MCHC RDW Plt Count MPV Neut # (Auto) Lymph # (Auto) [place] # (Auto) Eos # (Auto) Baso # (Auto) Absolute Nucleated RBC Nucleated RBC % PT 11.6 INR 1.0 APTT 27.0 VBG pH 7.028 L VBG pCO2 23.6 L VBG pO2 40.1 VBG HCO3 6.1 L VBG Total CO2 6.8 L VBG O2 Saturation 65.3 VBG Base Excess -23.4 L Sodium Potassium Chloride Carbon Dioxide Anion Gap BUN Creatinine Estimated GFR (MDRD) Glucose POC Whole Bld Glucose Calcium Total Bilirubin AST ALT Alkaline Phosphatase Troponin I High Sens 7.1 B-Natriuretic Peptide Total Protein Albumin Globulin Albumin/Globulin Ratio Lipase Serum Ketones 06/15/19 16:35 WBC RBC Hgb Hct MCV MCH MCHC RDW Plt Count MPV Neut # (Auto) Lymph # (Auto) [place] # (Auto) Eos # (Auto) Baso # (Auto) Absolute Nucleated RBC Nucleated RBC % PT INR APTT VBG pH VBG pCO2 VBG pO2 VBG HCO3 VBG Total CO2 VBG O2 Saturation VBG Base Excess Sodium Potassium Chloride Carbon Dioxide Anion Gap BUN Creatinine Estimated GFR (MDRD) Glucose POC Whole Bld Glucose Calcium Total Bilirubin AST ALT Alkaline Phosphatase Troponin I High Sens B-Natriuretic Peptide 31 Total Protein Albumin Globulin Albumin/Globulin Ratio Lipase Serum Ketones - Rads (name of study) 1v chest Radiology: EMP read contemporaneously (normal) PD MEDICAL DECISION MAKING - ED course ED course: 28-year-old G3, P2 at 27 weeks gestation presents with shortness of breath and found to have diabetic ketoacidosis which is likely causative. She was treated with a liter of saline followed by D5 normal with 20 of K and an insulin drip starting at 6 units/h. Initially PE was considered, nothing really on exam to suggest PE, but CT was canceled given the DKA likely giving the cause for the shortness of breath. Called [facility] and discussed the case with their waste and batting waste chopper at 5:25 PM but she declined, MFM and ICU are not at the same campus there. Subsequently was accepted to [facility] by Mily Pastrana at 5:55 PM. [place]ras were completed. - Critical Care Time(min): 50 Time Includes: Direct patient care, Review records, Reassess patient, Document care, Coordinate care, Medical consult Data interpretation: Labs, Pulse ox Procedures included in critical care time: Peripheral IV Procedures excluded from critical care time: EKG Departure - Departure Disposition: 02 Transfer Acute Care Hosp Clinical Impression: Qualifiers: Weeks of gestation: 27 weeks Qualified Code(s): Z3A.27 - 27 weeks gestation of DKA (diabetic ketoacidoses) Qualifiers: Diabetes mellitus type: type 1 Diabetes mellitus complication detail: without coma Qualified Code(s): E10.10 - Type 1 diabetes mellitus with ketoacidosis w ithout coma Condition: Critical
[2019-06-15 16:41] LABS: BASOPHILS # (AUTO) 0.1 10^3/uL (0.0-0.1); BASOPHILS % (AUTO) 0.6 %; EOSINOPHILS % (AUTO) 0.1 %; HGB - HEMOGLOBIN 14.1 g/dL (12.0-16.0); LYMPHOCYTES # (AUTO) 2.2 10^3/uL (1.5-3.5); LYMPHOCYTES % (AUTO) 15.9 %; MEAN CORPUSCULAR HEMOGLOBIN 26.8 pg (27.0-31.0); MEAN CORPUSCULAR HGB CONC 30.8 g/dL (32.0-36.0); MEAN CORPUSCULAR VOLUME 86.9 fL (81.0-99.0); MEAN PLATELET VOLUME 10.1 fL (7.9-10.8); MONOCYTES # (AUTO) 1.1 10^3/uL (0.0-1.0); MONOCYTES % (AUTO) 7.6 %; NEUTROPHILS # (AUTO) 10.4 10^3/uL (1.5-6.6); NEUTROPHILS % (AUTO) 74.6 %; PLT - PLATELET COUNT 430 10^3/uL (130-450); RED BLOOD COUNT 5.27 10^6/uL (4.20-5.40); RED CELL DISTRIBUTION WIDTH 12.7 % (12.0-15.0); WHITE BLOOD COUNT 13.9 x10^3/uL (4.8-10.8)
[2019-06-15 16:43] LABS: VBG BASE EXCESS -23.4 mmol/L (-2 - +2); VBG PCO2 23.6 mmHg (41-51); VBG PH 7.028 (7.31-7.41); VBG PO2 40.1 mmHg (25-47); VBG TOTAL CO2 6.8 mmol/L (24-29)
[2019-06-15] MEDS: SODIUM CHLORIDE 0.9% 1,000 ML IV ONE ×2 (16:55→17:55)
[2019-06-15 16:59] LABS: ALBUMIN 3.9 g/dL (3.2-5.5); ALBUMIN/GLOBULIN RATIO 0.7 (1.0-2.2); ALKALINE PHOSPHATASE 87 IU/L (42-121); ALT ALANINE AMINOTRANSFERASE 12 IU/L (10-60); AST ASPARTATE AMINOTRANSFERASE 16 IU/L (10-42); BILIRUBIN,TOTAL 1.3 mg/dL (0.2-1.0); BUN - BLOOD UREA NITROGEN 16 mg/dL (6-20); CALCIUM 9.5 mg/dL (8.5-10.3); CHLORIDE 101 mmol/L (101-111); CREATININE 0.9 mg/dL (0.4-1.0); GLUCOSE 363 mg/dL (70-100); LIPASE 27 U/L (22-51); SODIUM 130 mmol/L (135-145); TOTAL PROTEIN 9.7 g/dL (6.7-8.2)
[2019-06-15 17:00] LABS: CARBON DIOXIDE - CO2 6 mmol/L (21-32)
[2019-06-15 17:02] LABS: PT - PROTHROMBIN TIME 11.6 secs (9.9-12.6)
[2019-06-15 17:11] LABS: KETONES, SERUM (ACETEST) SMALL (NEGATIVE)
[2019-06-15] MEDS: ACETAMINOPHEN 1,000 MG/100 ML 100 ML IV STA (17:17)
[2019-06-15] MEDS: D5NS W/20 MEQ KCL 1,000 ML IV STA (17:40)
[2019-06-15] MEDS: INSULIN REGULAR HUMAN 100 UNIT in SODIUM CHLORIDE 0.9% 100ML 99 ML IV STA (17:41)
--- NOTE | 2019-06-15 17:46 | XRAY Report ---
Reason: dyspnea Procedure Date: 06/15/2019 Accession Number: [id number] / [id number] Procedure: XR - Chest 1 View X-Ray CPT Code: 49330 Final Report FULL RESULT: EXAM: CHEST RADIOGRAPHY EXAM DATE: 06/15/2019 05:38 PM. CLINICAL HISTORY: Dyspnea. COMPARISON: None. TECHNIQUE: 1 portable view. FINDINGS: Lungs/Pleura: No focal opacities evident. No pleural effusion. No pneumothorax. Mediastinum: Within exam limitations, the cardiomediastinal contour is normal. Other: None. IMPRESSION: Normal portable chest RADIA
[2019-06-15 17:54] VITALS: BP 139/77
[2019-06-15] MEDS: POTASSIUM CHLOR 10 MEQ/100 ML 10 MEQ/100 ML BAG IV ONE (17:55)
[2019-06-15] MEDS: ALBUTEROL NEB 2.5 MG/3 ML INH STA (17:55)
[2019-06-15] MEDS ORDERED: MAG HYDROX/AL HYDROX/SIMETH 30 ML UDC PO STA (18:13)
[2019-06-15] MEDS ORDERED: MAG HYDROX/AL HYDROX/SIMETH 30 ML UDC PO SCH (18:30)
== END 2019-06-15 19:00 | disposition short-term general hospital (02) ==
LOC: ED 16:15
DX: O99.89 Other specified diseases and conditions complicating pregnancy, childbirth and the puerperium (principal); R06.03 Acute respiratory distress; R00.0 Tachycardia, unspecified; R05 Cough; O24.012 Pre-existing type 1 diabetes mellitus, in pregnancy, second trimester; E10.40 Type 1 diabetes mellitus with diabetic neuropathy, unspecified; Z79.4 Long term (current) use of insulin; Z3A.27 27 weeks gestation of pregnancy
CPT/HCPCS: 36415; 71045; 80053; 82009; 82731; 82803; 83690; 83880; 84484; 85025; 85610; 85730; 93005; 96365; 96375; 99285; 99291; G0463; J0131; J1815; 85379; 99214

== ENCOUNTER 2019-08-03 10:33 | Outpatient (CLI) | payer MEDICARE, OTHER ==
[2019-08-03 11:14] VITALS: BP 129/78
[2019-08-03 11:30] LABS: BILIRUBIN,URINE NEGATIVE (NEGATIVE); GLUCOSE, URINE (UA) >=1000 mg/dL (NEGATIVE); KETONES,URINE (UA) NEGATIVE (NEGATIVE); LEUKOCYTE ESTERASE, URINE TRACE (NEGATIVE); NITRITE,URINE NEGATIVE (NEGATIVE); OCCULT BLOOD,URINE NEGATIVE (NEGATIVE); PROTEIN,URINE NEGATIVE (NEGATIVE); UROBILINOGEN,URINE 1 (NORMAL) E.U./dL (NORMAL)
[2019-08-03 11:31] LABS: CLARITY,URINE HAZY (CLEAR)
[2019-08-03 11:37] LABS: BACTERIA,URINE Few /HPF (None Seen); RBC,URINE 0-5 /HPF (0-5); SQUAMOUS EPITHELIAL CELL,UR MANY Squamous (<= Few)
[2019-08-03 11:44] LABS: ALBUMIN 2.6 g/dL (3.2-5.5); ALBUMIN/GLOBULIN RATIO 0.7 (1.0-2.2); BILIRUBIN,TOTAL 0.4 mg/dL (0.2-1.0); CALCIUM 8.1 mg/dL (8.5-10.3); CREATININE 0.5 mg/dL (0.4-1.0); TOTAL PROTEIN 6.4 g/dL (6.7-8.2)
[2019-08-03] MEDS ORDERED: INSULIN REGULAR HUMAN 300 UNIT/3 ML VIAL SUBQ SCH (12:52)
--- NOTE | 2019-08-03 13:58 | PREOP HISTORY & PHYSICAL ---
DATE OF SERVICE: 08/03/2019 Physician: Erasmo Casey MD IDENTIFICATION: The patient is a 28-year-old G5, P2-1-1-3 female who is currently 34 weeks EGA. She has been given a due date of 09/14/2019, utilizing her last menstrual period confirmed with ultrasound at 10 weeks' EGA. CHIEF COMPLAINT: Decreased motion. HISTORY OF PRESENT ILLNESS: The patient states today she has noted decreased motion. She has been followed for diabetes, which started after the delivery of her last child. She has needed to use insulin throughout this entire time. This occurred at roughly 24 years of age. She has been followed by the [facility]. Currently she states she is taking 80 units of insulin in the morning and 9 units of regular at lunch as well as dinner. She has been placed on a diabetic diet, but she is at her own admission, states she has not been following. Upon reviewing her recollection, she states her fastings have been running anywhere from 94-120 and one 2-hour postprandials have been running 145 to 190. Currently I do not have records from the [facility], and this was from her recollection. She is planning to have a repeat at 37 weeks with tubal ligation. PAST MEDICAL HISTORY: Positive for diabetes, 4-year history. She also has a history of bipolar disorder as well as anxiety. She also has cataracts, as well as diabetic neuropathy. She also has schizophrenia. PAST SURGICAL HISTORY: Positive for section as well as tonsils. CURRENT MEDICATIONS 1. Insulin morning dose, 80 of NPH noon, 9 of regular, dinner 9 of regular. 2. She is taking Prozac 20 mg daily. ALLERGIES: NONE KNOWN. HABITS: She denies use of alcohol, tobacco,or street or addictive drugs. PHYSICAL EXAMINATION GENERAL: Well-developed, well-nourished, black female. She is in no acute distress at this time. VITAL SIGNS: Blood pressure 129/78, heart rate 117, respirations 17, 100%, temperature is 37.2. HEENT: Pupils are equal and round. Extraocular muscles are intact. CARDIOVASCULAR: Regular rate and rhythm without murmurs. LUNGS: Lung rollins are clear without rales or wheezes. ABDOMEN: Soft, nontender, gravid. There is motion noted. She has a strip that shows evidence of reactivity. Her BPP shows positive respirations. The amniotic fluid volume was roughly 27. There was good motion as well as good tone. She got a 10 out of 10 for NST as well as BPP. LABORATORY DATA: Her blood sugar on DEXA stick upon immediate arrival showed a blood sugar of 138; however, her chem CMP showed a blood sugar of 121. Her electrolytes otherwise were all within normal limits with the exception of a low calcium, total protein, albumin, as well as albumin-globulin ratio. Urine was 1000 for glucose. Leukocyte esterase was trace; however, there were many squamous epithelial cells, and this was felt to be contamination. IMPRESSION: A 29-year-old G5, P2-1-1-3 at 34 weeks with insulin-dependent diabetes, which is of moderate to poor control. Her blood sugar is adequately controlled at this point. She shows evidence of good motion as well as reactivity. PLAN: We will allow the patient to eat lunch, will give 9 units of regular and allow her to go home. She has an appointment for Tuesday with the [facility]. She has been told this is imperative that she follow this. TD: 08/03/2019 13:12 DOLORES
--- NOTE | 2019-08-03 14:40 | Ultrasound Report ---
Reason: nonreactive nst Procedure Date: 08/03/2019 Accession Number: [id number] / [id number] Procedure: US - OB Biophysical Profile CPT Code: Final Report FULL RESULT: PROCEDURE: OB Biophysical Profile INDICATIONS: nonreactive nst OUTSIDE/PRIOR DATING DATA: Last menstrual period (LMP): 12/05/2018. LMP-based estimated date of delivery (TYRA): 09/11/2019. First dating scan (date and location): 02/13/2019. Estimated date of delivery (TYRA) from first dating scan: 09/11/2019. TECHNIQUE: Real-time scanning was performed of the fetus, with image documentation and biometric measurements. Biophysical profile was also obtained. Endovaginal scanning: Not needed COMPARISON: Not available. FINDINGS: General: A single living intrauterine gestation is present. Presentation: Vertex. Placenta: Placental position is anterior , without previa. Amniotic fluid index: 24.6 cm, normal for gestational age. heart rate: 149 beats per minute. Maternal cervical canal: Not well seen due to vertex presentation of the fetus Biophysical profile: Tone: 2 points. Movement: 2 points. Respiration: 2 points. Largest pocket of fluid: 2 points. IMPRESSION: Normal biophysical profile, normal amniotic fluid volume. Anterior placenta, viable gestation. Reviewed by: Eduard Deleon MD on 08/03/2019 2:38 PM PDT Approved by: Eduard Deleon MD on 08/03/2019 2:38 PM PDT Station ID: [id number]
== END 2019-08-03 13:15 | disposition home or self-care (01) ==
LOC: WFO 10:33 → FBP 10:35 → WFO 13:15
PROVIDERS: ATTEND Obstetrics & Gynecology
DX: O24.313 Unspecified pre-existing diabetes mellitus in pregnancy, third trimester (principal); E11.42 Type 2 diabetes mellitus with diabetic polyneuropathy; E11.36 Type 2 diabetes mellitus with diabetic cataract; H26.9 Unspecified cataract; Z79.4 Long term (current) use of insulin; O99.343 Other mental disorders complicating pregnancy, third trimester; F20.9 Schizophrenia, unspecified; F31.9 Bipolar disorder, unspecified; F41.9 Anxiety disorder, unspecified; Z3A.34 34 weeks gestation of pregnancy
CPT/HCPCS: 36415; 59025; 76819; 80053; 81001; G0463; J1815; 87086; 99213

== ENCOUNTER 2019-11-19 18:02 | Emergency (ER) | payer MEDICARE, OTHER ==
[2019-11-19 18:17] VITALS: BP 125/72
--- NOTE | 2019-11-19 18:27 | ED Physician Documentation ---
PD HPI SKIN - Stated complaint Stated Complaint: L BREAST PAIN - Chief complaint Chief Complaint: General - History obtained from History obtained from: Patient - History of Present Illness Timing - onset: Today, Yesterday Timing - duration: Days (2) Timing - details: Abrupt onset, Still present Location: Other (left breast redness, tender, firmness.) Quality / character: Painful, Discolored, Swelling Associated symptoms: No: Fever, N/V/D Similar symptoms before: Has not had sx before (she is 2 months . Having still milk letdown from breasts but not breast feeding any more due to small volume of milk and less suckle from baby (who is taking bottle better). Not pumping. Has noted swelling/tender/pain left breast) Review of Systems Constitutional: denies: Fever, Chills GI: denies: Nausea, Vomiting PD PAST MEDICAL HISTORY - Past Medical History Cardiovascular: None Respiratory: None Neuro: Headaches, Migraines Endocrine/Autoimmune: Type 1 diabetes GI: None CORE STICKER: None : None HEENT: None Psych: None Musculoskeletal: None Derm: None - Past Surgical History Past Surgical History: Yes /CORE STICKER: section - Present Medications Home Medications: Ambulatory Orders Medication Instructions Recorded Confirmed Insulin Aspart [NovoLOG] 5 units SUBQ TID 08/19/18 06/15/19 Insulin Glargine [Lantus Solostar] 30 units SUBQ BID 08/19/18 06/15/19 Albuterol Sulf [Ventolin Hfa 1 - 2 puffs INH Q4HR PRN #1 inhaler 06/03/19 Inhaler] Pnv No.121/Iron/Folic Acid 1 each PO 06/15/19 [ Multivitamin Tablet] Cephalexin [Keflex] 500 mg PO Q6H #28 capsule 11/19/19 Ibuprofen [Motrin] 600 mg PO TID PRN #20 tab 11/19/19 - Allergies Allergies/Adverse Reactions: Allergies Allergy/AdvReac Type Severity Reaction Status Date / Time No Known Drug Allergies Allergy Verified 11/19/19 18:14 - Social History Does the pt smoke?: No Smoking Status: Never smoker Does the pt drink ETOH?: No Does the pt have substance abuse?: No - Immunizations Immunizations are current?: Yes - POLST Patient has POLST: No PD ED PE NORMAL - Vitals Vital signs reviewed: Yes - General General: Alert and oriented X 3, No acute distress, Well developed/nourished - Cardiac Cardiac: RRR, No murmur - Respiratory Respiratory: Clear bilaterally - Derm Derm: Other (left breast with firmness, tender, redness at inferolateral aspect of the breast tissue. No lesions at the areaola/nipple per se. ) Results - Vitals Vitals: Vital Signs - 24 hr 11/19/19 18:14 Temperature 36.5 C Heart Rate 96 Respiratory 16 Rate Blood Pressure 125/72 O2 Saturation 99 Oxygen O2 Source Room air PD MEDICAL DECISION MAKING - ED course Complexity details: considered differential, d/w patient Departure - Departure Disposition: Home, Self Care Clinical Impression: Mastitis, left, acute Condition: Stable Record reviewed to determine appropriate education?: Yes Instructions: ED Breast Infec Prescriptions: Cephalexin [Keflex] 500 mg PO Q6H #28 capsule Ibuprofen [Motrin] 600 mg PO TID PRN #20 tab PRN Reason: Pain Comments: This does seem like a breast gland infection called mastitis. Pump the milk from the breast to help improve flow and decompress the swelling. Anti-inflammatories of ibuprofen 3 times a day. Add Tylenol if needed for pain. Cephalexin as directed for the infection. I would anticipate improvement over the next 2 to 3 days and resolution in 3 to 5 days. Recheck if not improving in that timeframe. Discharge Date/Time: 11/19/19 18:48
[2019-11-19] MEDS ORDERED: IBUPROFEN 600 MG TABLET PO STA (18:38)
[2019-11-19] MEDS ORDERED: cephALEXin 250 MG CAPSULE PO STA (18:38)
== END 2019-11-19 18:48 | disposition home or self-care (01) ==
LOC: ED 18:02
DX: N61.0 Mastitis without abscess (principal); E10.9 Type 1 diabetes mellitus without complications; Z79.4 Long term (current) use of insulin
CPT/HCPCS: 99282; 99283; A9270

== ENCOUNTER 2019-12-07 13:22 | Outpatient (CLI) | payer OTHER | END 2019-12-07 13:23 | disposition home or self-care (01) | LOC: LAB 13:22 | PROVIDERS: ATTEND Ophthalmology | DX: Z53.9 Procedure and treatment not carried out, unspecified reason (principal) ==

== ENCOUNTER 2019-12-10 08:00 | Outpatient (CLI) | payer OTHER | END 2019-12-10 23:59 | disposition home or self-care (01) | LOC: LAB 08:00 | PROVIDERS: ATTEND Ophthalmology | DX: Z01.818 Encounter for other preprocedural examination (principal); Z20.828 Contact with and (suspected) exposure to other viral communicable diseases; H25.812 Combined forms of age-related cataract, left eye ==

== ENCOUNTER 2019-12-13 07:22 | Day surgery (SDC) | payer OTHER ==
[~2019-12-13 07:22] MED LIST: BRIMONIDINE 0.2% OPHTH DROPS 5 ML ONE; BSS/LIDOCAINE/EPINEPHRINE 1 ML SYRINGE ONE; EPINEPHrine 1 MG/ML AMP ONE; KETOROLAC 0.45% OPHTH DROPS ONE; PHENYLEPHRINE 2.5% OPHTH 2 ML DROPS ONE; PROPARACAINE 0.5% OPHTH DROPS 15 ML ONE; TIMOLOL 0.5% OPHTH DROPS ONE; TRIAMCIN/MOXIFLOX OPHTHALMIC 0.6 ML VIAL IO ONE; VANCOMYCIN OPHTHALMI 8MG/0.8ML 8 MG/0.8 ML SYRINGE IO ONE
[2019-12-13] MEDS ORDERED: LACTATED RINGERS 500 ML IV ONE (07:30)
[2019-12-13] MEDS ORDERED: CYCLOPENTOLATE 1% OPHTH DROPS 2 ML ONE (07:48)
--- NOTE | 2019-12-13 08:06 | ANESTHESIA ---
Pre-Anesthesia VS, & Labs - Diagnosis left Cataract - Procedure Left Phaco IOL Vital Signs: Temp Pulse Resp BP Pulse Ox 36.6 C 85 18 112/77 100 12/13/19 07:43 12/13/19 07:43 12/13/19 07:43 12/13/19 07:43 12/13/19 07:43 Height: 5 ft 7 in Weight (kg): 65 kg Body Mass Index: 22.4 BMI Classification: Healthy weight - NPO >8 hours - Is Patient ?: No Home Medications and Allergies Insulin Aspart [NovoLOG] 5 units SUBQ TID 08/19/18 Insulin Glargine [Lantus Solostar] 30 units SUBQ BID 08/19/18 Pnv No.121/Iron/Folic Acid [ Multivitamin Tablet] 1 each PO DAILY 06/15/19 Allergies/Adverse Reactions: Allergies Allergy/AdvReac Type Severity Reaction Status Date / Time No Known Drug Allergies Allergy Verified 11/19/19 18:14 Anes History & Medical History - Anesthetic History Anesthesia Complications: reports: No previous complications Family history of Anesthesia Complications: Denies Family history of Malignant Hyperthermia: Denies - Medical History Cardiovascular: reports: None Pulmonary: reports: None Gastrointestinal: reports: None Urinary: reports: None Neuro: reports: Headaches, Migraines Musculoskeletal: reports: None Endocrine/Autoimmune: reports: Type 1 diabetes Blood Disorders: reports: None Skin: reports: Eczema Smoking Status: Never smoker - Surgical History Eyes Ears Nose Throat (EENT): Tonsil/Adenoidectomy Gynecologic: section Plan Anesthesia Type: MAC Consent for Procedure(s) Verified and Reviewed: Yes Code Status: Attempt Resuscitation ASA classification: 2-Mild systemic disease Is this case an emergency?: No
--- NOTE | 2019-12-13 08:07 | ANESTHESIA ---
Pre-Anesthesia VS, & Labs - Diagnosis Left eye senile combinerd cataract - Procedure left eye cataract extraction with IOL Vital Signs: Temp Pulse Resp BP Pulse Ox 36.6 C 85 18 112/77 100 12/13/19 07:43 12/13/19 07:43 12/13/19 07:43 12/13/19 07:43 12/13/19 07:43 Height: 5 ft 7 in Weight (kg): 65 kg Body Mass Index: 22.4 BMI Classification: Healthy weight - NPO >8 hours - Is Patient ?: No (s/p BTL) - Lab Results Current Lab Results: Laboratory Tests 12/13/19 07:50: POC Whole Bld Glucose 211 H Home Medications and Allergies Insulin Aspart [NovoLOG] 5 units SUBQ TID 08/19/18 Insulin Glargine [Lantus Solostar] 30 units SUBQ BID 08/19/18 Pnv No.121/Iron/Folic Acid [ Multivitamin Tablet] 1 each PO DAILY 06/15/19 Allergies/Adverse Reactions: Allergies Allergy/AdvReac Type Severity Reaction Status Date / Time No Known Drug Allergies Allergy Verified 11/19/19 18:14 Anes History & Medical History - Anesthetic History Anesthesia Complications: reports: No previous complications - Medical History Cardiovascular: reports: None Pulmonary: reports: None Gastrointestinal: reports: None Urinary: reports: None Neuro: reports: Headaches, Migraines (Bright light triggers) Musculoskeletal: reports: None Endocrine/Autoimmune: reports: Type 1 diabetes (Since 2016) Blood Disorders: reports: None Skin: reports: Eczema Smoking Status: Never smoker Psychosocial: reports: No issues indicated History of Cancer?: No - Surgical History Eyes Ears Nose Throat (EENT): Tonsil/Adenoidectomy Gynecologic: section Exam General: Alert, Oriented x3, Cooperative, No acute distress Dental: Poor dentition Mouth Openin Fingerbreadth Neck Mobility: Normal Mallampati classification: II Thyromental Distance: 4-6 cm Respiratory: Lungs clear, Normal breath sounds, No respiratory distress, No accessory muscle use Cardiovascular: Regular rate, Normal S1, Normal S2, No murmurs Mental/Cognitive Status: Alert/Oriented X3, Normal for patient Plan Anesthesia Type: MAC Consent for Procedure(s) Verified and Reviewed: Yes Code Status: Attempt Resuscitation ASA classification: 2-Mild systemic disease Is this case an emergency?: No
[2019-12-13] MEDS ORDERED: MIDAZOLAM 2 MG/2 ML VIAL IVP ONE (08:30)
[2019-12-13] MEDS ORDERED: fentaNYL 100 MCG/2 ML VIAL IVP ONE (08:30)
[2019-12-13] MEDS ORDERED: BRIMONIDINE 0.2% OPHTH DROPS 5 ML OPTH ONE (08:40)
[2019-12-13] MEDS ORDERED: EPINEPHrine 1 MG/ML AMP IR ONE (08:41)
[2019-12-13] MEDS ORDERED: TIMOLOL 0.5% OPHTH DROPS OPTH ONE (08:41)
[2019-12-13] MEDS ORDERED: CHONDR SULF/HYALURONATE SYRINGE IO ONE (08:41)
[2019-12-13] MEDS ORDERED: PROPARACAINE 0.5% OPHTH DROPS 15 ML EACHEYE ONE (08:42)
[2019-12-13] MEDS ORDERED: TRIAMCIN/MOXIFLOX OPHTHALMIC 0.6 ML VIAL IO ONE (08:42)
[2019-12-13] MEDS ORDERED: BSS/LIDOCAINE/EPINEPHRINE 1 ML SYRINGE IO ONE (08:42)
[2019-12-13] MEDS ORDERED: VANCOMYCIN OPHTHALMI 8MG/0.8ML 8 MG/0.8 ML SYRINGE IO ONE (08:43)
[2019-12-13] MEDS ORDERED: LACTATED RINGERS 1,000 ML IV ONE (09:03)
[2019-12-13 09:17] VITALS: BP 118/84
--- NOTE | 2019-12-13 10:17 | OPERATIVE REPORT ---
DATE OF SERVICE: 12/13/2019 Physician: Mohinder Varma MD PREOPERATIVE DIAGNOSIS: Visually significant cataract, left eye. This was her first cataract surger y. POSTOPERATIVE DIAGNOSIS: Visually significant cataract, left eye. This was her first cataract surge ry. PROCEDURE: Phacoemulsification with posterior chamber intraocular lens implant, left eye. SURGEON: Mohinder Varma MD ANESTHESIA: Monitored anesthesia care. COMPLICATIONS: None. OPERATIVE INDICATIONS: This is a 29-year-old woman with progressive vision loss in the left eye due to 1+ nuclear sclerotic, 2+ anterior subcapsular and 3+ posterior subcapsular cataract, brought on by type 1 diabetes. Best corrected visual acuity was 20/50, with glare to count fingers vision in the left eye. Indications for surgery are overall decrease in vision, difficulty seeing words on a compu ter screen, difficulty reading; difficulty seeing words, closed caption or game scores on TV, difficu lty seeing street signs, difficulty driving in low light or at night, difficulty driving at night bec ause of headlights from other vehicles, difficulty with glare or bright lights in any situation, diff iculty tracking a golf ball and decreased acuity with firearms. She was consented at length concerni ng risks and benefits of cataract surgery, after which she expressed a desire to proceed with surgery . OPERATIVE PROCEDURE: Patient was taken into OR #3 and placed under monitored anesthesia care. A hany gical timeout was conducted confirming correct patient, correct procedure, and correct surgical site. She was given topical anesthesia, and prepped and draped in the usual sterile fashion. The eye was entered at the 6 and 3 o'clock positions. Intracameral Shugarcaine was injected into the anterior c hamber, followed by Viscoat. A continuous-tear curvilinear capsulorrhexis was performed. The nucleu s was hydrodissected and aspirated. The cortex was evacuated using automated infusion and aspiration . Provisc was injected in the capsular bag, and a 23.0 diopter intraocular lens was inserted into th e bag. Infusion and aspiration was used to evacuate the viscoelastic materials. The eye was inflate d to physiologic pressure using balanced salt solution and found to be watertight. Approximately 0.2 5 mL mixture of triamcinolone and moxifloxacin was injected transsclerally into the vitreous in the i nferotemporal quadrant. An additional 0.55 mL of a mixture of triamcinolone, moxifloxacin and vancom ycin was injected subconjunctivally in the superior quadrant for infection and inflammation prophylax is. Wound integrity was checked with Weck-Caterina sponges. The patient was taken from the [facility] in good condition and given postoperative instructions. TD: 12/13/2019 09:34
--- NOTE | 2019-12-13 10:42 | ANESTHESIA POST OP EVALUATION ---
Anesthesia Post Eval - Post Anesthesia Eval Vitals: Last Vital Signs Temp 36.4 C L 12/13/19 09:03 Pulse 73 12/13/19 09:16 Resp 16 12/13/19 09:16 BP 118/84 H 12/13/19 09:16 Pulse Ox 99 12/13/19 09:16 CV Function Including HR & BP: positive: Stable Pain Control: positive: Satisfactory Nausea & Vomiting: positive: Negative Mental Status: positive: Baseline Respiratory Status: Airway Patent Hydration Status: Satisfactory Anesthesia Complications: positive: None
== END 2019-12-13 07:23 | disposition home or self-care (01) ==
LOC: SDS 07:22
PROVIDERS: ATTEND Ophthalmology
DX: E10.36 Type 1 diabetes mellitus with diabetic cataract (principal); H25.812 Combined forms of age-related cataract, left eye; Z79.4 Long term (current) use of insulin
CPT/HCPCS: 66984; A9270; J3490; J7120; V2632

== ENCOUNTER 2020-01-14 07:00 | Outpatient (CLI) | payer OTHER | END 2020-01-14 23:59 | disposition home or self-care (01) | LOC: COV 07:00 | PROVIDERS: ATTEND Ophthalmology | DX: Z01.818 Encounter for other preprocedural examination (principal); H25.811 Combined forms of age-related cataract, right eye; Z20.828 Contact with and (suspected) exposure to other viral communicable diseases ==

== ENCOUNTER 2020-01-17 07:16 | Day surgery (SDC) | payer OTHER ==
[~2020-01-17 07:16] MED LIST changes: -BRIMONIDINE 0.2% OPHTH DROPS 5 ML ONE; -BSS/LIDOCAINE/EPINEPHRINE 1 ML SYRINGE ONE; -EPINEPHrine 1 MG/ML AMP ONE; -TIMOLOL 0.5% OPHTH DROPS ONE; -TRIAMCIN/MOXIFLOX OPHTHALMIC 0.6 ML VIAL IO ONE; -VANCOMYCIN OPHTHALMI 8MG/0.8ML 8 MG/0.8 ML SYRINGE IO ONE
[2020-01-17] MEDS ORDERED: BRIMONIDINE 0.2% OPHTH DROPS 5 ML ONE ×2 (07:17→08:57)
[2020-01-17] MEDS ORDERED: TRIAMCIN/MOXIFLOX OPHTHALMIC 0.6 ML VIAL IO ONE ×3 (07:17→09:54)
[2020-01-17] MEDS ORDERED: EPINEPHrine 1 MG/ML AMP ONE ×2 (07:17→08:57)
[2020-01-17] MEDS ORDERED: TIMOLOL 0.5% OPHTH DROPS ONE ×2 (07:18→08:57)
[2020-01-17] MEDS ORDERED: BSS/LIDOCAINE/EPINEPHRINE 1 ML SYRINGE ONE ×2 (07:18→08:57)
[2020-01-17] MEDS ORDERED: VANCOMYCIN OPHTHALMI 8MG/0.8ML 8 MG/0.8 ML SYRINGE IO ONE ×3 (07:18→09:55)
[2020-01-17] MEDS ORDERED: LACTATED RINGERS 500 ML IV ONE ×2 (07:48→10:12)
--- NOTE | 2020-01-17 08:03 | ANESTHESIA ---
Pre-Anesthesia VS, & Labs - Diagnosis R senile combined cataract - Procedure Extraction cataract L eye, with IOL Vital Signs: Temp Pulse Resp BP Pulse Ox 36.9 C 80 16 112/74 100 01/17/20 07:20 01/17/20 07:20 01/17/20 07:20 01/17/20 07:20 01/17/20 07:20 Height: 5 ft 7 in Weight (kg): 65.7 kg Body Mass Index: 22.6 BMI Classification: Healthy weight - NPO >8 hours - Is Patient ?: No - Lab Results Current Lab Results: Laboratory Tests 01/17/20 07:39: POC Whole Bld Glucose 156 H Lab results reviewed: Yes Home Medications and Allergies Insulin Aspart [NovoLOG] 5 units SUBQ TID 08/19/18 Insulin Glargine [Lantus Solostar] 30 units SUBQ BID 08/19/18 Pnv No.121/Iron/Folic Acid [ Multivitamin Tablet] 1 each PO DAILY 06/15/19 Allergies/Adverse Reactions: Allergies Allergy/AdvReac Type Severity Reaction Status Date / Time No Known Drug Allergies Allergy Verified 11/19/19 18:14 Anes History & Medical History - Medical History Cardiovascular: reports: None Pulmonary: reports: None Gastrointestinal: reports: None Urinary: reports: None Neuro: reports: Headaches, Migraines Musculoskeletal: reports: None Endocrine/Autoimmune: reports: Type 1 diabetes Blood Disorders: reports: None Skin: reports: None Smoking Status: Never smoker - Surgical History Gynecologic: section Exam General: Alert, Oriented x3, Cooperative Dental: WNL Mouth Openin Fingerbreadth Neck Mobility: Normal Mallampati classification: II Thyromental Distance: greater than 6 cm Respiratory: Lungs clear, Normal breath sounds, No respiratory distress Cardiovascular: Regular rate Mental/Cognitive Status: Alert/Oriented X3, Normal for patient Cognitive Status: Within normal limits Plan Anesthesia Type: MAC Consent for Procedure(s) Verified and Reviewed: Yes Code Status: Attempt Resuscitation ASA classification: 2-Mild systemic disease Is this case an emergency?: No
[2020-01-17] MEDS ORDERED: fentaNYL 100 MCG/2 ML VIAL IVP PRN (08:36)
[2020-01-17] MEDS ORDERED: ATROPINE ABBOJECT 1 MG/10 ML SYRINGE IVP PRN (08:36)
[2020-01-17] MEDS ORDERED: ePHEDrine 50 MG/ML VIAL IVP PRN (08:36)
[2020-01-17] MEDS ORDERED: METOCLOPRAMIDE 10 MG/2 ML VIAL IVP PRN (08:36)
[2020-01-17] MEDS ORDERED: ONDANSETRON 4 MG/2 ML VIAL IVP PRN (08:36)
[2020-01-17] MEDS ORDERED: NALOXONE 0.4 MG/ML VIAL IVP PRN (08:36)
[2020-01-17] MEDS ORDERED: HYDROmorphone 0.5 MG/0.5 ML SYRINGE IVP PRN (08:36)
[2020-01-17] MEDS ORDERED: MORPHINE 2 MG/ML CARPUJECT IVP PRN (08:36)
[2020-01-17] MEDS ORDERED: LACTATED RINGERS 1,000 ML IV SCH (09:00)
[2020-01-17] MEDS ORDERED: MIDAZOLAM 2 MG/2 ML VIAL IVP ONE (09:44)
[2020-01-17] MEDS ORDERED: fentaNYL 100 MCG/2 ML VIAL IVP ONE (09:44)
[2020-01-17] MEDS ORDERED: BRIMONIDINE 0.2% OPHTH DROPS 5 ML OPTH ONE (09:53)
[2020-01-17] MEDS ORDERED: EPINEPHrine 1 MG/ML AMP IR ONE (09:53)
[2020-01-17] MEDS ORDERED: TIMOLOL 0.5% OPHTH DROPS OPTH ONE (09:54)
[2020-01-17] MEDS ORDERED: PROPARACAINE 0.5% OPHTH DROPS 15 ML EACHEYE ONE (09:54)
[2020-01-17] MEDS ORDERED: CHONDR SULF/HYALURONATE SYRINGE IO ONE (09:54)
[2020-01-17] MEDS ORDERED: BSS/LIDOCAINE/EPINEPHRINE 1 ML SYRINGE IO ONE (09:54)
[2020-01-17] MEDS ORDERED: TRYPAN BLUE 0.5 ML SYRINGE IO ONE (10:04)
--- NOTE | 2020-01-17 10:34 | ANESTHESIA POST OP EVALUATION ---
Anesthesia Post Eval - Post Anesthesia Eval Vitals: Last Vital Signs Temp 36.9 C 01/17/20 07:20 Pulse 80 01/17/20 07:20 Resp 16 01/17/20 07:20 BP 112/74 01/17/20 07:20 Pulse Ox 100 01/17/20 07:20 CV Function Including HR & BP: positive: Stable Pain Control: positive: Satisfactory Nausea & Vomiting: positive: Negative Mental Status: positive: Baseline Respiratory Status: Airway Patent Hydration Status: Satisfactory Anesthesia Complications: positive: None
[2020-01-17 10:35] VITALS: BP 111/79
--- NOTE | 2020-01-17 12:37 | OPERATIVE REPORT ---
DATE OF SERVICE: 01/17/2020 Physician: Mohinder Varma MD PREOPERATIVE DIAGNOSIS: Visually significant cataract, right eye. This was a complex surgery requiring staining of the anterior capsule with trypan blue and mechanical dilation of the poorly dilated pupil with a Malyugin ring. Surgery was performed on the left eye on 12/13/2019. POSTOPERATIVE DIAGNOSIS: Visually significant cataract, right eye. This was a complex surgery requiring staining of the anterior capsule with trypan blue and mechanical dilation of the poorly dilated pupil with a Malyugin ring. Surgery was performed on the left eye on 12/13/2019. PROCEDURE: Phacoemulsification with posterior chamber intraocular lens implant, right eye. SURGEON: Mohinder Varma MD ANESTHESIA: Monitored anesthesia care. COMPLICATIONS: None. OPERATIVE INDICATIONS: This is a 29-year-old woman with progressive vision loss in her right eye due to 1+ nuclear sclerotic and 2+ posterior subcapsular cataract. Best corrected visual acuity was 20/40, with glare to count fingers vision in her right eye. She was consented at length concerning risks and benefits of cataract surgery, after which she expressed a desire to proceed with surgery. Indications for surgery are overall decrease in vision, difficulty seeing words on a computer screen, difficulty reading, difficulty seeing words, closed caption or game scores on TV, difficulty seeing street signs, difficulty driving in low light low light or at night, difficulty driving at night because of headlights from other vehicles, difficulty with glare or bright lights in any situation, difficulty tracking a golf ball and decreased acuity with firearms. OPERATIVE PROCEDURE: The patient was taken to OR #3 and placed under monitored anesthesia care. Surgical timeout was conducted confirming correct patient, correct procedure, and correct surgical site. She was given topical anesthesia, and prepped and draped in the usual sterile fashion. Before starting the case it was noted that there was virtually no red reflex and the pupil was only mid- dialted. Clearly her cataract had progressed significantly since her last evaluation. It was likely that she had about a 4+ posterior subcapsular cataract that was blocking the red reflex. It was decided then to stain the anterior capsule with trypan blue which was ordered from the pharmacy. After entering the eye at the 12 o'clock position, an air bubble was injected into the anterior chamber and Trypan blue was injected under the bubble and painted the anterior capsule. Viscoat was injected into the anterior chamber to push out the air bubble and then a phaco wound was created at the 9 o'clock position. Because of the poor dilation, a Malyugin ring was injected into the anterior chamber and engaged with the pupillary margin at 4 points to dilate the pupil. Additional Trypan blue was injected underneath the Viscoat in an attempt to further stain the anterior capsule. With the anterior capsule stained, a continuous-tear curvilinear capsulorrhexis was performed, but visibility was very poor. The nucleus was prolapsed out of the capsule and phacoemulsified. The cortex was evacuated using automated infusion and aspiration. Provisc was injected in the capsular bag and a 24.5 diopter intraocular lens was inserted into the bag. The Malyugin ring was disengaged from the pupillary margin and removed from the anterior chamber. Infusion and aspiration was used to evacuate the viscoelastic materials. The eye was inflated to physiologic pressure using balanced salt solution and found to be watertight. Approximately 0.25 mL of a mixture of triamcinolone and moxifloxacin was injected transsclerally into the vitreous in inferotemporal quadrant. An additional 0.55 mL mixture of triamcinolone, moxifloxacin, and vancomycin was injected subconjunctivally in the superior quadrant for infection and inflammation prophylaxis. Wound integrity was checked with Weck-Caterina sponges. Patient was taken from the Operating Room in good condition and given postoperative instructions. TD: 01/17/2020 10:28 DOLORES
== END 2020-01-17 07:17 | disposition home or self-care (01) ==
LOC: SDS 07:16
PROVIDERS: ATTEND Ophthalmology
DX: E10.36 Type 1 diabetes mellitus with diabetic cataract (principal); E10.3292 Type 1 diabetes mellitus with mild nonproliferative diabetic retinopathy without macular edema, left eye; H25.812 Combined forms of age-related cataract, left eye; Z79.4 Long term (current) use of insulin
CPT/HCPCS: 66982; A9270; J3490; J7120; V2632